=== PATIENT | female | born 1970 | race Two or more races ===

== ENCOUNTER 2022-04-17 08:54 | Outpatient (CLI) | payer BC | END 2022-04-17 23:59 | disposition home or self-care (01) | LOC: US 08:54 | PROVIDERS: ATTEND Family Medicine | DX: N83.292 Other ovarian cyst, left side (principal); N85.8 Other specified noninflammatory disorders of uterus | CPT/HCPCS: 76856-TC ==

== ENCOUNTER 2022-12-07 10:16 | Outpatient (CLI) | payer BC | END 2022-12-07 23:59 | disposition home or self-care (01) | LOC: US 10:16 | PROVIDERS: ATTEND Family Medicine | DX: N88.8 Other specified noninflammatory disorders of cervix uteri (principal); N81.4 Uterovaginal prolapse, unspecified; N83.202 Unspecified ovarian cyst, left side | CPT/HCPCS: 76856-TC ==